=== PATIENT | male | born 1955 | race Two or more races ===

== ENCOUNTER 2018-08-15 17:50 | Emergency (ER) | payer MEDICAID, OTHER ==
[~2018-08-15] VITALS: Ht 175.3 cm; Wt 90.7 kg
[2018-08-15 18:08] VITALS: BP 151/92
[2018-08-15 18:28] LABS: BASOPHILS % (AUTO) 0.7 % (0.0-2.0); EOSINOPHILS % (AUTO) 1.5 % (0.0-3.0); HEMATOCRIT 41.1 % (42.0-52.0); LYMPHOCYTES % (AUTO) 26.5 % (20.0-45.0); MEAN CORPUSCULAR VOLUME 81 FL (80-99); MONOCYTES % (AUTO) 7.7 % (1.0-10.0); NEUTROPHILS % (AUTO) 63.5 % (45.0-75.0); PLATELET COUNT 341 K/UL (150-450); RED CELL DISTRIBUTION WIDTH 11.5 % (11.6-14.8); WHITE BLOOD COUNT 8.9 K/UL (4.8-10.8)
[2018-08-15 18:31] LABS: APPEARANCE,URINE CLEAR; BILIRUBIN, URINE NEGATIVE (NEGATIVE); GLUCOSE, URINE (UA) NEGATIVE (NEGATIVE); KETONES,URINE NEGATIVE (NEGATIVE); LEUKOCYTE ESTERASE ,URINE NEGATIVE (NEGATIVE); NITRITE,URINE NEGATIVE (NEGATIVE); PH,URINE 6 (4.5-8.0); PROTEIN,URINE NEGATIVE (NEGATIVE); UROBILINOGEN,URINE 1 MG/DL (0.0-1.0)
[2018-08-15 18:37] LABS: ANION GAP 11 mmol/L (5-15); BLOOD UREA NITROGEN 14 mg/dL (7-18); CALCIUM 9.2 MG/DL (8.5-10.1); CARBON DIOXIDE 27 MMOL/L (21-32); CHLORIDE 100 MMOL/L (98-107); CREATININE 1.1 MG/DL (0.55-1.30); SODIUM 138 MMOL/L (136-145)
[2018-08-15 18:38] LABS: COLOR,URINE YELLOW
[2018-08-15 18:43] LABS: ALANINE AMINOTRANSFERASE 18 U/L (12-78); ALBUMIN 3.5 G/DL (3.4-5.0); ALBUMIN/GLOBULIN RATIO 0.8 (1.0-2.7); ALKALINE PHOSPHATASE 93 U/L (46-116); ASPARTATE AMINO TRANSFERASE 11 U/L (15-37); BILIRUBIN,TOTAL 0.4 MG/DL (0.2-1.0)
--- NOTE | 2018-08-15 18:51 | Emergency Room Report ---
History of Present Illness General Chief Complaint: Pain Source: Patient Present Illness HPI 62-year-old male with no significant past medical history here complaining of 1 month of generalized body ache and urinary frequency. Patient reports that he went to his primary care provider a month ago and had complete blood work was diagnosed with arthritis however his daughter reports that is unsure whether all his labs were within normal limits. Patient currently taking no medication other than ibuprofen and Tylenol for his arthritis. Patient has a blood pressure of 150/100 upon arrival in ED denying chest pain, palpitation, dizziness, headache, blurry vision, fatigue. Patient is pointing to his left knee as well as low back and both arms rating the pain 7 out of 10 with radiation denying tingling numbness describing the pain as aching. Also complains of over 1 month of urinary frequency was already tested and negative for infection no pending referral to urologist. Patient reports waking up multiple times in middle the night and urinating denies dysuria and hematuria. Allergies: Coded Allergies: No Known Allergies (Unverified , 08/15/18) Patient History Past Medical History: see triage record Past Surgical History: unable to obtain Pertinent Family History: none Immunizations: UTD Reviewed Nursing Documentation: PMH: Agreed; PSxH: Agreed Nursing Documentation-PMH Past Medical History: No Stated History Review of Systems All Other Systems: negative except mentioned in HPI Physical Exam Vital Signs Date Time Temp Pulse Resp B/P (MAP) Pulse Ox O2 Delivery O2 Flow Rate FiO2 08/15/18 17:56 98.2 80 18 155/100 (118) 99 Room Air Sp02 EP Interpretation: reviewed, normal General Appearance: normal inspection, well appearing, no apparent distress, alert, GCS 15, non-toxic Head: normocephalic, atraumatic Eyes: bilateral eye normal inspection, bilateral eye PERRL ENT: normal ENT inspection, hearing grossly normal, normal pharynx, no angioedema Neck: normal inspection, full range of motion, supple, thyroid normal, no meningismus Respiratory: normal inspection, chest non-tender, lungs clear, normal breath sounds, no rhonchi, no wheezing Cardiovascular #1: normal inspection, normal peripheral pulses, regular rate, rhythm, no edema, no gallop, no murmur Cardiovascular #2: 2+ radial (R), 2+ radial (L) Gastrointestinal: normal inspection, non tender, soft, no mass Rectal: deferred Genitourinary: no CVA tenderness Musculoskeletal: back normal, digits/nails normal, gait/station normal, other - Arthritic changes and deformities noted in knees Neurologic: normal inspection, alert, oriented x3 Psychiatric: normal inspection, judgement/insight normal Skin: normal inspection, normal color, warm/dry Lymphatic: normal inspection, no adenopathy Medical Decision Making PA Attestation All my diagnosis and treatment plans were reviewed ad discussed with my supervising physician Dr. Naidu Diagnostic Impression: Primary Impression: Arthritic-like pain Additional Impressions: Elevated blood sugar HTN (hypertension) ER Course 62-year-old male with no significant past medical history here complaining of 1 month of generalized body ache and urinary frequency. Patient reports that he went to his primary care provider a month ago and had complete blood work was diagnosed with arthritis however his daughter reports that is unsure whether all his labs were within normal limits. Patient currently taking no medication other than ibuprofen and Tylenol for his arthritis. Patient has a blood pressure of 150/100 upon arrival in ED denying chest pain, palpitation, dizziness, headache, blurry vision, fatigue. Patient is pointing to his left knee as well as low back and both arms rating the pain 7 out of 10 with radiation denying tingling numbness describing the pain as aching. Also complains of over 1 month of urinary frequency was already tested and negative for infection no pending referral to urologist. Patient reports waking up multiple times in middle the night and urinating denies dysuria and hematuria. Ddx considered but are not limited to : Arthritis, diabetes, hypertension, anemia, osteopenia,BPH, prostatitis, UTI Vital signs: are WNL, pt. is afebrile H&PE are most consistent with: Arthritis, hypertension, elevated blood sugar ORDERS: Chest x-ray, EKG, CBC, CMP, UA urine culture, ibuprofen 600, Voltaren gel, lisinopril 10 mg ED INTERVENTIONS: None required at this time. DISCHARGE: At this time pt. is stable for d/c to home. Will provide printed patient care instructions, and any necessary prescriptions. Care plan and follow up instructions have been discussed with the patient prior to discharge. I adv ised the patient to follow-up with a primary care provider for referral to physical therapist as well as start of possible diabetes medication and continuation of blood pressure medication as the second rate was 149/90 so referral to urologist needed due to frequent urination possible BPH prostate exam needed Glucose 162 EKG Diagnostic Results Rate: normal Rhythm: NSR ST Segments: no acute changes Chest X-Ray Diagnostic Results Chest X-Ray Diagnostic Results : Chest X-Ray Ordered: Yes # of Views/Limited/Complete: 1 View Indication: Other EP Interpretation: Yes PA Xray: Interpretation reviewed, by supervising MD, and agrees with findings. Interpretation: no consolidation, no effusion, no pneumothorax Impression: No acute disease Electronically Signed by: ijeoma harper PA-C Last Vital Signs Date Time Temp Pulse Resp B/P (MAP) Pulse Ox O2 Delivery O2 Flow Rate FiO2 08/15/18 18:08 98.2 82 16 151/92 98 Room Air Disposition: HOME, SELF-CARE Condition: Stable Scripts Lisinopril* (LISINOPRIL*) 10 Mg Tablet 10 MG ORAL DAILY for 7 Days, #7 TAB Prov: Ijeoma Agustin 08/15/18 Ibuprofen* (MOTRIN*) 600 Mg Tablet 600 MG ORAL Q8H PRN for For Pain, #30 TAB 0 Refills Prov: Ijeoma Agustin 08/15/18 Diclofenac Sodium (VOLTAREN) 100 Gm Gel..gram. 2 GM TP TID, #100 GM Prov: Ijeoma Agustin 08/15/18 Patient Instructions: Arthritis, [id number], Growth Hormone-SportsMed, Hypertension, [id number] Additional Instructions: Follow-up with the primary care provider for management of diabetes and high blood pressure further testing need to be done you may need to be on diabetes medication and also blood pressure medication patient to also test you for arthritis physical therapy highly recommended Ijeoma Agustin Aug 15, 2018 18:51
[2018-08-15 18:52] VITALS: BP 149/87
[2018-08-15] MEDS ORDERED: VOLTAREN100 G1 TP (18:52)
[2018-08-15] MEDS ORDERED: IBUPROFEN600 MG ORAL (18:52)
[2018-08-15] MEDS ORDERED: LISINOPRIL10 MG ORAL (18:56)
[2018-08-15 19:09] VITALS: BP 149/87
--- NOTE | 2018-08-16 10:02 | Diagnostic Imaging Report ---
Indication: Chest pain Technique: One view of the chest Comparison: none Findings: Lungs and pleural spaces are clear. Heart size is normal Impression: No acute process
--- NOTE | 2018-08-17 19:18 | Cardiology Report ---
APPROVED REPORT EKG Measurement Heart [id number] Normal sinus rhythm Normal ECG
== END 2018-08-15 19:00 | disposition home or self-care (01) ==
LOC: EMR 18:29
DX: R52 Pain, unspecified (principal); I10 Essential (primary) hypertension; R73.9 Hyperglycemia, unspecified
CPT/HCPCS: 36415; 71045; 80053; 81001; 85025; 87086; 93005; 99283